=== PATIENT | male | born 1995 | race Caucasian/White ===

== ENCOUNTER 2018-05-04 10:55 | Emergency (ER) | payer OTHER ==
[~2018-05-04] VITALS: Ht 170.2 cm; Wt 72.6 kg
[2018-05-04] MEDS ORDERED: UNICOMPLEX M TA1 TA1 PO (11:00)
[2018-05-04] MEDS ORDERED: GENTAMICIN OPH3.5 G1 OPHTHALMIC (14:08)
[2018-05-04 14:19] VITALS: BP 130/81
== END 2018-05-04 14:19 | disposition home or self-care (01) ==
LOC: M.ERS 10:55
DX: T15.01XA Foreign body in cornea, right eye, initial encounter (principal); X58.XXXA Exposure to other specified factors, initial encounter; Y93.89 Activity, other specified; Y92.69 Other specified industrial and construction area as the place of occurrence of the external cause; Y99.0 Civilian activity done for income or pay

== ENCOUNTER 2018-06-22 16:41 | Emergency (ER) | payer OTHER ==
[~2018-06-22] VITALS: Ht 170.2 cm; Wt 70.3 kg
[~2018-06-22 16:41] MED LIST: GENTAMICIN OPH3.5 G1 OPHTHALMIC; UNICOMPLEX M TA1 TA1 PO
[2018-06-22] MEDS ORDERED: MAGIC MOUTHWASH SWISH&SPIT (17:45)
[2018-06-22 17:58] VITALS: BP 133/98
== END 2018-06-22 17:59 | disposition home or self-care (01) ==
LOC: M.ERS 16:41
DX: J02.8 Acute pharyngitis due to other specified organisms (principal); B97.89 Other viral agents as the cause of diseases classified elsewhere